=== PATIENT | female | born 1985 | race Caucasian/White ===

== ENCOUNTER 2016-10-06 08:49 | Emergency (ER) | payer OTHER ==
[~2016-10-06] VITALS: Ht 162.6 cm; Wt 83.2 kg
[~2016-10-06 08:49] MED LIST: DIVA500T35 PO; QUET200T PO
[2016-10-06] MEDS ORDERED: OMEP20 PO (09:13)
[2016-10-06] MEDS ORDERED: ETHI1TAB31 PO (09:13)
[2016-10-06 09:57] LABS: GLUCOSE, URINE (UA) NEGATIVE (NEGATIVE); KETONES,URINE NEGATIVE (NEGATIVE); LEUKOCYTE ESTERASE ,URINE SMALL (NEGATIVE); OCCULT BLOOD,URINE NEGATIVE (NEGATIVE); PROTEIN,URINE NEGATIVE (NEGATIVE)
[2016-10-06 09:58] LABS: APPEARANCE,URINE SLIGHTLY CLOUDY (CLEAR)
[2016-10-06 09:59] LABS: RBC,URINE None Seen /HPF (0-2); SQUAMOUS EPITHELIAL CELL,UR Many /LPF (None Seen); WBC,URINE 0-2 /HPF (0-5)
[2016-10-06 10:33] VITALS: BP 98/60
== END 2016-10-06 10:37 | disposition home or self-care (01) ==
LOC: EMS 08:55
DX: N76.0 Acute vaginitis (principal); N89.8 Other specified noninflammatory disorders of vagina
CPT/HCPCS: 99284

== ENCOUNTER 2021-01-16 13:43 | Emergency (ER) | payer MEDICARE, MEDICAID ==
[~2021-01-16] VITALS: Ht 162.6 cm; Wt 57.7 kg
[~2021-01-16 13:43] MED LIST changes: +DIVA-112 PO; -DIVA500T35 PO; +ETHI1TAB31 PO; +OMEP20 PO
[2021-01-16] MEDS ORDERED: SODIUM CHLORIDE 0.9% 1,000 ML IV ONE (14:45)
[2021-01-16] MEDS ORDERED: ONDANSETRON HCL 4 MG/2 ML VIAL IVP ONE (14:45)
[2021-01-16 14:49] LABS: BASOPHILS % (AUTO) 0.5 % (0.0-2.0); EOSINOPHILS % (AUTO) 0 % (1.0-6.0); HEMOGLOBIN 14.7 g/dL (12.0-16.0); LYMPHOCYTES # (AUTO) 1.7 K/uL (1.0-4.8); MEAN CORPUSCULAR HGB CONC 35.1 G/dL (31.0-37.0); MEAN CORPUSCULAR VOLUME 94 fL (80-100); MONOCYTES # (AUTO) 0.6 K/uL (0.1-1.0); MONOCYTES % (AUTO) 5.8 % (2.0-9.0); NEUTROPHILS # (AUTO) 7.3 K/uL (1.8-7.7); NEUTROPHILS % (AUTO) 75.7 % (40.0-70.0); PLATELET COUNT (AUTO) 301 K/uL (150-450); RED BLOOD CELL COUNT(AUTO) 4.46 MIL/uL (4.00-5.20); RED CELL DISTRIBUTION WIDTH 13.3 % (11.5-14.5)
[2021-01-16 14:50] LABS: ANION GAP 10 mmol/L (8-16); CARBON DIOXIDE 27 mmol/L (22-29); CHLORIDE 99 mmol/L (98-107); POTASSIUM 3.4 mmol/L (3.5-5.1); SODIUM SERUM 136 mmol/L (136-145)
[2021-01-16 14:51] LABS: CALCIUM, TOTAL 9.5 mg/dL (8.8-10.5); CREATININE 0.81 mg/dL (0.60-1.30); GLOMERULAR FILTR. RATE CALC > 60 mL/min (>60); GLUCOSE,RANDOM 105 mg/dL (70-110); UREA NITROGEN, BLOOD 7 mg/dL (7-18)
[2021-01-16 14:52] LABS: APPEARANCE,URINE CLEAR (CLEAR); BILIRUBIN,URINE NEGATIVE (NEGATIVE); GLUCOSE, URINE (UA) NEGATIVE (NEGATIVE); KETONES,URINE TRACE mg/dL (NEGATIVE); LEUKOCYTE ESTERASE ,URINE NEGATIVE (NEGATIVE); NITRATE,URINE NEGATIVE (NEGATIVE); OCCULT BLOOD,URINE NEGATIVE (NEGATIVE); PROTEIN,URINE NEGATIVE (NEGATIVE); UROBILINOGEN,URINE 0.2 mg/dL (<=1.0)
[2021-01-16 15:03] LABS: ALANINE AMINOTRANSFERASE 44 U/L (12-78); ALBUMIN 4.4 g/dL (3.4-5.0); ALKALINE PHOSPHATASE 60 U/L (46-116); ASPARTATE AMINOTRANSFERASE 16 U/L (15-37); BILIRUBIN,TOTAL 0.5 mg/dL (0.1-1.0); HCG,QUANTITATIVE < 1 mIU/mL (0-6); LIPASE 70 U/L (73-393); TOTAL PROTEIN, SERUM 9.3 g/dL (6.4-8.2)
[2021-01-16 15:05] LABS: VALPROIC ACID < 3 mcg/mL (50-100)
[2021-01-16 15:22] VITALS: BP 115/76
[2021-01-16] MEDS ORDERED: POTASSIUM CHLORIDE 20 MEQ ER TABLET PO ONE (15:30)
== END 2021-01-16 15:58 | disposition home or self-care (01) ==
LOC: EMS 13:43
DX: K21.9 Gastro-esophageal reflux disease without esophagitis (principal); F41.9 Anxiety disorder, unspecified; F31.9 Bipolar disorder, unspecified; Z79.899 Other long term (current) drug therapy
CPT/HCPCS: 36415; 80053; 80164; 81003; 83690; 84702; 85025; 96361; 96374; 99283; J2405; J7030; 99285

== ENCOUNTER 2021-09-12 17:42 | Emergency (ER) | payer MEDICARE, MEDICAID ==
[~2021-09-12] VITALS: Ht 162.6 cm; Wt 56.8 kg
[2021-09-12] MEDS ORDERED: METO5TAB95 PO (18:21)
[2021-09-12] MEDS ORDERED: PANT-31 PO (18:21)
[2021-09-12] MEDS ORDERED: ATOR10TA84 PO (18:21)
[2021-09-12] MEDS ORDERED: METO10TA3 PO (18:51)
[2021-09-12] MEDS ORDERED: ETHI1TAB30 PO (18:51)
[2021-09-12] MEDS ORDERED: ATOR20TA65 PO (18:51)
[2021-09-12 19:30] LABS: BASOPHILS % (AUTO) 0.8 % (0.0-2.0); EOSINOPHILS % (AUTO) 0.1 % (1.0-6.0); HEMATOCRIT 36.4 % (36-46); HEMOGLOBIN 12.5 g/dL (12.0-16.0); LYMPHOCYTES # (AUTO) 2.4 K/uL (1.0-4.8); LYMPHOCYTES % (AUTO) 29.5 % (22.0-44.0); MEAN CORPUSCULAR HGB CONC 34.3 G/dL (31.0-37.0); MEAN CORPUSCULAR VOLUME 90 fL (80-100); MONOCYTES # (AUTO) 0.7 K/uL (0.1-1.0); MONOCYTES % (AUTO) 8.3 % (2.0-9.0); NEUTROPHILS % (AUTO) 61.3 % (40.0-70.0); PLATELET COUNT (AUTO) 283 K/uL (150-450); RED BLOOD CELL COUNT(AUTO) 4.03 MIL/uL (4.00-5.20); RED CELL DISTRIBUTION WIDTH 13.4 % (11.5-14.5)
[2021-09-12 19:43] LABS: ANION GAP 9 mmol/L (8-16); CALCIUM, TOTAL 8.8 mg/dL (8.8-10.5); CARBON DIOXIDE 24 mmol/L (22-29); CHLORIDE 102 mmol/L (98-107); CREATININE 0.71 mg/dL (0.60-1.30); GLUCOSE,RANDOM 106 mg/dL (70-110); POTASSIUM 3.5 mmol/L (3.5-5.1); SODIUM SERUM 135 mmol/L (136-145); UREA NITROGEN, BLOOD 7 mg/dL (7-18)
[2021-09-12 19:44] LABS: GLOMERULAR FILTR. RATE CALC > 60 mL/min (>60)
[2021-09-12 19:56] LABS: ALANINE AMINOTRANSFERASE 26 U/L (12-78); ALBUMIN 3.5 g/dL (3.4-5.0); ALKALINE PHOSPHATASE 44 U/L (46-116); ASPARTATE AMINOTRANSFERASE 16 U/L (15-37); BILIRUBIN,TOTAL 0.2 mg/dL (0.1-1.0); HCG,QUANTITATIVE < 1 mIU/mL (0-6); LIPASE 102 U/L (73-393); TOTAL PROTEIN, SERUM 7.5 g/dL (6.4-8.2)
[2021-09-12 21:16] VITALS: BP 124/74
[2021-09-12] MEDS ORDERED: PB/HYOSCY/ATR/SCOP/LIDO/MAALOX 55 ML BOTTLE PO ONE ×2 (21:45)
[2021-09-12] MEDS ORDERED: FAMO20 PO (21:57)
== END 2021-09-12 22:15 | disposition home or self-care (01) ==
LOC: EMS 17:42
DX: K29.70 Gastritis, unspecified, without bleeding (principal); F41.9 Anxiety disorder, unspecified; F31.9 Bipolar disorder, unspecified; K21.9 Gastro-esophageal reflux disease without esophagitis; E78.00 Pure hypercholesterolemia, unspecified
CPT/HCPCS: 80053; 83690; 84702; 85025; 99283

== ENCOUNTER 2023-06-02 11:35 | Inpatient (IN) | payer MEDICARE, MEDICAID ==
[~2023-06-02] VITALS: Ht 167.6 cm; Wt 54.9 kg
[~2023-06-02 11:35] MED LIST changes: +ATOR20TA65 PO; +ETHI1TAB30 PO; -ETHI1TAB31 PO; +FAMO20 PO; +METO10TA3 PO; -OMEP20 PO; +PANT-31 PO
[2023-06-02] MEDS ORDERED: SUCR1TAB PO (11:46)
[2023-06-02 12:48] LABS: BASOPHILS % (AUTO) 0.7 % (0.0-2.0); EOSINOPHILS % (AUTO) 0.1 % (1.0-6.0); HEMATOCRIT 35.7 % (36-46); HEMOGLOBIN 12.2 g/dL (12.0-16.0); LYMPHOCYTES # (AUTO) 1.8 K/uL (1.0-4.8); LYMPHOCYTES % (AUTO) 19.7 % (22.0-44.0); MEAN CORPUSCULAR HEMOGLOBIN 29.6 pg (26.0-34.0); MEAN CORPUSCULAR VOLUME 87 fL (80-100); MONOCYTES # (AUTO) 0.8 K/uL (0.1-1.0); MONOCYTES % (AUTO) 8.2 % (2.0-9.0); NEUTROPHILS # (AUTO) 6.5 K/uL (1.8-7.7); NEUTROPHILS % (AUTO) 71.3 % (40.0-70.0); PLATELET COUNT (AUTO) 312 K/uL (150-450); RED BLOOD CELL COUNT(AUTO) 4.11 MIL/uL (4.00-5.20); RED CELL DISTRIBUTION WIDTH 16.2 % (11.5-14.5); WHITE BLOOD COUNT (AUTO) 9.1 K/uL (4.5-11.0)
[2023-06-02 13:03] LABS: ALANINE AMINOTRANSFERASE 43 U/L (12-78); ALKALINE PHOSPHATASE 58 U/L (46-116); ANION GAP 11 mmol/L (8-16); ASPARTATE AMINOTRANSFERASE 24 U/L (15-37); BILIRUBIN,TOTAL 0.8 mg/dL (0.1-1.0); CARBON DIOXIDE 29 mmol/L (22-29); CHLORIDE 101 mmol/L (98-107); CREATININE 0.63 mg/dL (0.60-1.30); GLOMERULAR FILTR. RATE CALC > 60 mL/min (>60); GLUCOSE,RANDOM 90 mg/dL (70-110); SODIUM SERUM 141 mmol/L (136-145); TOTAL PROTEIN, SERUM 8.3 g/dL (6.4-8.2); UREA NITROGEN, BLOOD 7 mg/dL (7-18)
[2023-06-02 13:05] LABS: ALCOHOL, BLOOD (SERUM) < 3 mg/dL (0-10)
[2023-06-02 15:23] LABS: COVID AG,FIA SOURCE NASAL SWAB
[2023-06-02] MEDS ORDERED: LORazepam 2 MG TABLET PO PRN (15:30)
[2023-06-02] MEDS ORDERED: ZOLPIDEM TARTRATE 10 MG TABLET PO PRN (15:30)
[2023-06-02] MEDS ORDERED: OLANZapine 5 MG RAPDIS TABLET PO PRN (15:30)
[2023-06-02 16:00] LABS: SARS-COV2 (COVID) ANTIGEN,FIA Negative (Negative)
[2023-06-02] MEDS: LORazepam 1 MG TABLET PO ONE (16:31)
[2023-06-02] MEDS: HALOPERIDOL 5 MG TABLET PO ONE (16:31)
[2023-06-02] MEDS: POTASSIUM CHLORIDE 20 MEQ ER TABLET PO ONE (16:33)
[2023-06-03 12:15] LABS: PH,URINE DRUG SCREEN 6.5 (5.0-8.0)
[2023-06-03 12:16] LABS: APPEARANCE,URINE HAZY (CLEAR); BILIRUBIN,URINE NEGATIVE (NEGATIVE); COLOR,URINE YELLOW (YELLOW); GLUCOSE, URINE (UA) NEGATIVE (NEGATIVE); KETONES,URINE 40-60 mg/dL (NEGATIVE); LEUKOCYTE ESTERASE ,URINE NEGATIVE (NEGATIVE); NITRATE,URINE NEGATIVE (NEGATIVE); OCCULT BLOOD,URINE NEGATIVE (NEGATIVE); PH,URINE 6.5 (5.0-8.0); PROTEIN,URINE TRACE mg/dL (NEGATIVE); SPECIFIC GRAVITIY, URINE 1.022 (1.003-1.030)
[2023-06-03 12:23] LABS: ALCOHOL, URINE DRUG SCREEN NEGATIVE (NEGATIVE); AMPHET/METH SCREEN,URINE NEGATIVE (NEGATIVE); BARBITURATE SCREEN, URINE NEGATIVE (NEGATIVE); BENZODIAZEPINES SCREEN,URINE NEGATIVE (NEGATIVE); CANNABINOID SCREEN,URINE NEGATIVE (NEGATIVE); COCAINE SCREEN,URINE NEGATIVE (NEGATIVE); METHADONE SCREEN, URINE NEGATIVE (NEGATIVE); OPIATE SCREEN,URINE NEGATIVE (NEGATIVE); PHENCYCLIDINE SCREEN,URINE NEGATIVE (NEGATIVE)
[2023-06-03] MEDS ORDERED: LORazepam 2 MG TABLET PO PRN (22:15)
[2023-06-03] MEDS ORDERED: ZOLPIDEM TARTRATE 10 MG TABLET PO PRN (22:15)
[2023-06-03] MEDS ORDERED: OLANZapine 5 MG RAPDIS TABLET PO PRN (22:15)
[2023-06-03 23:22] VITALS: BP 105/74; PULSE 93; RESP 19; TEMP 97.5
[2023-06-03 23:24] VITALS: BP 105/74; PULSE 93; RESP 19; TEMP 97.5
[2023-06-03 23:37] VITALS: BP 105/74; PULSE 93; RESP 19; TEMP 97.5
[2023-06-04] MEDS: OMEGA-3/DHA/EPA/FISH OIL 1,000 MG CAPSULE PO SCH (09:00)
[2023-06-04] MEDS: DIVALPROEX SODIUM 500 MG ER TABLET PO SCH (09:00)
[2023-06-04 09:07] VITALS: BP 100/62; PULSE 86; RESP 18; TEMP 97.4; O2SAT 98
[2023-06-04] MEDS ORDERED: ACETAMINOPHEN 325 MG TABLET PO PRN (09:45)
[2023-06-04] MEDS ORDERED: LOPERAMIDE HCL 2 MG CAPSULE PO PRN (09:45)
[2023-06-04] MEDS ORDERED: MAG HYDROX/ALUMINUM HYD/SIMETH ES 30 ML SUSPENSION UDCUP PO PRN (09:45)
[2023-06-04] MEDS ORDERED: TUBERCULIN, PURIFIED PROTEIN DERIVATIVE 5 TU/0.1 ML SYRINGE ID ONE (09:45)
[2023-06-04] MEDS ORDERED: PROMETHAZINE HCL 25 MG TABLET PO PRN (09:45)
[2023-06-04] MEDS ORDERED: MAGNESIUM HYDROXIDE SUSPENSION 30 ML UDCUP PO PRN (09:45)
[2023-06-04] MEDS ORDERED: HydrOXYzine PAMOATE 50 MG CAPSULE PO PRN (09:45)
[2023-06-04] MEDS ORDERED: GuaiFENesin/D-METHORPHAN [SUGAR-FREE] 200-20MG/10 ML SYRUP UDCUP PO PRN (09:45)
[2023-06-04] MEDS: THIAMINE 100 MG TABLET PO SCH (17:00)
[2023-06-04] MEDS ORDERED: METOCLOPRAMIDE HCL 10 MG TABLET PO PRN (20:45)
[2023-06-04] MEDS: OLANZapine 5 MG RAPDIS TABLET PO SCH (21:15)
[2023-06-04] MEDS: MELATONIN 5 MG TABLET PO SCH (21:15)
[2023-06-04 21:43] VITALS: RESP 18
[2023-06-04] MEDS: POTASSIUM CHLORIDE 20 MEQ ER TABLET PO ONE (22:34)
[2023-06-05 07:27] LABS: ANION GAP 8 mmol/L (8-16); CALCIUM, TOTAL 8.6 mg/dL (8.8-10.5); CARBON DIOXIDE 28 mmol/L (22-29); CHLORIDE 104 mmol/L (98-107); CREATININE 0.51 mg/dL (0.60-1.30); GLOMERULAR FILTR. RATE CALC > 60 mL/min (>60); GLUCOSE,RANDOM 79 mg/dL (70-110); POTASSIUM 3.3 mmol/L (3.5-5.1); SODIUM SERUM 140 mmol/L (136-145); UREA NITROGEN, BLOOD 8 mg/dL (7-18)
[2023-06-05 07:39] LABS: HEMOGLOBIN A1C 5.2 % (3.8-5.6)
[2023-06-05 07:53] LABS: CHOL/HDL RATIO 1.9 (3.9-5.7); FREE T4 (FREE THYROXINE) 1.68 ng/dL (0.76-1.46); THYROID STIMULATING HORMONE 2.61 uIU/mL (0.36-3.74)
[2023-06-05] MEDS: POTASSIUM CHLORIDE 20 MEQ ER TABLET PO ONE (08:46)
[2023-06-05] MEDS: MULTIVITAMINS WITH MINERALS, THERAPEUTIC TABLET PO SCH (08:47)
[2023-06-05] MEDS: ATORVASTATIN CALCIUM 20 MG TABLET PO SCH (08:47)
[2023-06-05] MEDS: SUCRALFATE 1 GM TABLET PO SCH (08:47)
[2023-06-05] MEDS: FOLIC ACID 1 MG TABLET PO SCH (08:47)
[2023-06-05] MEDS ORDERED: [UNRECOGNIZED DRUG - OTHER] PO SCH (09:00)
[2023-06-05] MEDS: PANTOPRAZOLE SODIUM 40 MG DR TABLET PO SCH (09:03)
[2023-06-05 16:42] VITALS: BP 125/81; PULSE 71; RESP 18; TEMP 97; O2SAT 96
[2023-06-05] MEDS ORDERED: OLAN5TAB94 PO (17:21)
[2023-06-05] MEDS ORDERED: MELA5TAB40 PO (17:21)
[2023-06-05] MEDS ORDERED: DIVA500T69 PO (17:21)
[2023-06-05] MEDS ORDERED: OMEG-135 PO (17:21)
[2023-06-06 00:16] VITALS: BP 97/65; PULSE 103; RESP 18; TEMP 97.8; O2SAT 98
[2023-06-06 09:33] VITALS: BP 103/61; PULSE 102; RESP 18; TEMP 97.5; O2SAT 98
== END 2023-06-06 12:30 | disposition home or self-care (01) | DRG 885 ==
LOC: EMS 11:51 → 3EI 06-03 17:11
PROVIDERS: ADMIT Psychiatry & Neurology Psychiatry; ATTEND Psychiatry & Neurology Psychiatry
PROC: GZHZZZZ Group Psychotherapy (ICD-10-PCS; principal; 2023-06-03)
PROC: GZ58ZZZ Individual Psychotherapy, Cognitive-Behavioral (ICD-10-PCS; 2023-06-03)
PROC: GZ56ZZZ Individual Psychotherapy, Supportive (ICD-10-PCS; 2023-06-03)
DX: F25.9 Schizoaffective disorder, unspecified (principal); E78.00 Pure hypercholesterolemia, unspecified; F17.210 Nicotine dependence, cigarettes, uncomplicated; F31.9 Bipolar disorder, unspecified; I10 Essential (primary) hypertension; I34.1 Nonrheumatic mitral (valve) prolapse; M41.9 Scoliosis, unspecified; J44.9 Chronic obstructive pulmonary disease, unspecified; K21.9 Gastro-esophageal reflux disease without esophagitis; Z20.822 Contact with and (suspected) exposure to COVID-19; E87.6 Hypokalemia; T43.96XA Underdosing of unspecified psychotropic drug, initial encounter; Y92.89 Other specified places as the place of occurrence of the external cause; Z55.9 Problems related to education and literacy, unspecified; Z59.9 Problem related to housing and economic circumstances, unspecified; Z63.9 Problem related to primary support group, unspecified; Z65.3 Problems related to other legal circumstances; Z91.040 Latex allergy status; Z79.899 Other long term (current) drug therapy
CPT/HCPCS: 80048; 80053; 80061; 80307; 81003; 83036; 84439; 84443; 84703; 85025; 99285; G0480; Q9967